=== PATIENT | female | born 1945 | race Caucasian/White ===

== ENCOUNTER 2023-01-04 19:17 | Inpatient (IN) | payer MEDICAID ==
[~2023-01-04] VITALS: Ht 157.5 cm; Wt 55.0 kg
[2023-01-04 19:37] LABS: BASOPHILS % (AUTO) 0.6 % (0-1); EOSINOPHILS # (AUTO) 0.5 X10'3 (0-0.9); HEMATOCRIT 36.2 % (35.0-45.0); HEMOGLOBIN 12.3 g/dl (12.0-16.0); LYMPHOCYTES # (AUTO) 2.6 X10'3 (1.1-4.8); LYMPHOCYTES % (AUTO) 47.4 % (21-51); MEAN CORPUSCULAR VOLUME 94.1 FL (78-98); MEAN PLATELET VOLUME 7.9 FL (7.4-10.4); MONOCYTES # (AUTO) 0.5 X10'3 (0-0.9); MONOCYTES % (AUTO) 8.7 % (2-12); NEUTROPHILS # (AUTO) 1.9 X10'3 (1.8-7.7); NEUTROPHILS % (AUTO) 34.3 % (42-75); PLATELET COUNT 221 X10'3 (140-440); RED BLOOD COUNT 3.85 X10'6 (4.20-5.60); RED CELL DISTRIBUTION WIDTH 13.9 % (11.5-14.5); WHITE BLOOD COUNT 5.5 X10'3 (4.5-11.0)
[2023-01-04 19:42] LABS: ALANINE AMINOTRANSFERASE 11 U/L (12-78); ALBUMIN 3.4 G/DL (3.4-5.0); ALBUMIN/GLOBULIN RATIO 0.9 (1.1-1.5); ALKALINE PHOSPHATASE 61 IU/L (46-116); ANION GAP 10 (8-16); ASPARTATE AMINO TRANSFERASE 17 U/L (10-37); BILIRUBIN,TOTAL 0.3 MG/DL (0.1-1.0); BLOOD UREA NITROGEN 10 MG/DL (7-18); BUN/CREATININE RATIO 12.8 (10.0-20.0); CALCIUM 8.7 MG/DL (8.5-10.1); CHLORIDE 103 MMOL/L (99-107); CREATININE 0.78 MG/DL (0.40-0.90); GLUCOSE 134 MG/DL (70-104); POTASSIUM 3.6 MMOL/L (3.5-5.1); SODIUM 137 MMOL/L (135-145); TOTAL CARBON DIOXIDE 24.2 MMOL/L (24-32); TOTAL PROTEIN 7.3 G/DL (6.4-8.2); eGFR 71 ML/MIN
[2023-01-04 22:05] LABS: CLARITY,URINE CLEAR (Clear); COLOR,URINE YELLOW (Yellow); GLUCOSE, URINE NEGATIVE (Neg); KETONES,URINE NEGATIVE (Neg); LEUKOCYTE ESTERASE ,URINE NEGATIVE (Neg); NITRITES, URINE NEGATIVE (Neg); OCCULT BLOOD,URINE MODERATE (Neg); PROTEIN,URINE NEGATIVE (Neg); UROBILINOGEN,URINE 0.2 E.U/dL (0.2-1.0)
[2023-01-04 22:14] LABS: BACTERIA,URINE NONE SEEN /HPF (Neg); SQUAMOUS EPITHELIAL CELL,UR FEW /LPF (FEW); UA COLLECTION TYPE CLN CATCH MIDSTREAM; WBC,URINE 0-4 /HPF (0-4)
--- NOTE | 2023-01-04 22:37 | NUR ---
Dr. Valdes called regarding this pt he is going to put in orders. If Dr. Bull needs to reach him his phone # is [phone]
[2023-01-05] MEDS ORDERED: magnesium hydroxide 30ml (MOM) UD suspension PO PRN (00:10)
[2023-01-05] MEDS ORDERED: ondansetron 4mg rapidly disintigrating tab PO PRN (00:10)
[2023-01-05] MEDS ORDERED: HYDROcodone/acetaminophen 5mg/325mg tablet PO PRN (00:10)
[2023-01-05] MEDS ORDERED: diphenhydrAMINE 25mg capsule PO PRN (00:10)
[2023-01-05] MEDS ORDERED: bisacodyl 10mg suppository rectal RC PRN (00:10)
[2023-01-05] MEDS ORDERED: ondansetron/PF 4mg/2ml inj IV PRN (00:10)
[2023-01-05] MEDS ORDERED: diphenhydrAMINE 50 mg/ml inj IV PRN (00:10)
[2023-01-05] MEDS ORDERED: acetaminophen 325mg tablet PO PRN ×2 (00:10)
[2023-01-05] MEDS ORDERED: mag hydrox/Alum hydrox/simeth 30ml oral suspension PO PRN (00:10)
[2023-01-05] MEDS ORDERED: acetaminophen 650mg rectal suppository RC PRN (00:10)
[2023-01-05] MEDS ORDERED: morphine 2 MG/ML inj. syringe IV PRN (00:10)
[2023-01-05] MEDS: dextrose 5%-1/2 normal saline 1,000 ML IV SCH ×4 (00:44→22:55)
[2023-01-05 01:05] LABS: HEMOGLOBIN A1C 5.8 % (4.5-6.2)
[2023-01-05 01:19] LABS: CREATINE KINASE 55 U/L (26-192); PHOSPHORUS 4.1 MG/DL (2.3-4.5)
[2023-01-05 02:59] LABS: APTT 26 SECONDS (22-32); D-DIMER 1.45 MG/L FEU (0-0.50)
[2023-01-05 06:00] VITALS: BP 125/59
[2023-01-05] MEDS: docusate sod 100mg capsule PO SCH ×2 (07:30→20:47)
[2023-01-05] MEDS: meclizine 12.5mg tablet PO SCH ×3 (07:30→20:47)
[2023-01-05] MEDS: pantoprazole 40mg Tablet.DR PO SCH (07:30)
[2023-01-05] MEDS: aspirin 81mg, enteric-coated 1 TAB TABLET.DR PO SCH (07:30)
[2023-01-05] MEDS: heparin, porcine 5000 units/ml vial SQ SCH ×2 (07:31→20:48)
[2023-01-05 10:00] VITALS: BP 115/62
--- NOTE | 2023-01-05 10:33 | NUR ---
Patient in room ORTHO 4012. I have received report from NORIS Saxena and had the opportunity to ask questions and assume patient care.
[2023-01-05] MEDS ORDERED: FLU VACC QS2022-23(6MOS UP)/PF 60 MCG/0.5 ML SYRINGE IMVAC ONE (11:00)
[2023-01-05] MEDS ORDERED: pneumococcal 23-VAL P-sac vacc 25 mcg/0.5ml vial IMVAC ONE (11:00)
[2023-01-05] MEDS ORDERED: SACU1TAB7 PO (13:45)
[2023-01-05] MEDS ORDERED: BISO5TAB PO (13:45)
[2023-01-05] MEDS ORDERED: EPLE25TA4 PO (13:45)
[2023-01-05 14:00] VITALS: BP 91/57
--- NOTE | 2023-01-05 15:20 | NUR ---
Malnutrition Consult: Pt admit DX dizziness, acute vertigo w /rule out CVA, and hematuria per EMR. 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 Family does report pt is lacto-vegetarian dietary notified. RD encouraged pt/family to make further food preferences known and told them they may bring in food from home to meet pt cultural preferences as needed. Pt appears WD/WN during RD visit as well as per ER note; at this time lacks minimum malnutrition criteria. Addendum: 01/05/23 at [address] Amended: Links added.
[2023-01-05 18:00] VITALS: BP 96/55
--- NOTE | 2023-01-05 18:00 | NUR ---
Patient in room ORTHO 4012. I have received report from Kayla HAMM and had the opportunity to ask questions and assume patient care.
--- NOTE | 2023-01-05 18:40 | NUR ---
Problems reprioritized. Patient report given, questions answered & plan of care reviewed with NORIS Marina.
[2023-01-05] MEDS ORDERED: temazepam 15mg capsule PO PRN (21:00)
[2023-01-05 22:00] VITALS: BP 104/55
--- NOTE | 2023-01-06 02:00 | NUR ---
Pts blood pressure was taken at 0200 with an auto cuff result was 89/49. Pts bp was reassessed manually with a result of 108/66. Will continue to monitor blood pressure
--- NOTE | 2023-01-06 03:34 | NUR ---
Pt was assessed during shift change, granddaughter is at bedside and answering questions due to a language barrier. When IV was assessed it was found to have infiltrated. The iv was removed and replaced in the right forearm with a 22g that flushed well and is infusing. Pt has had a low bp with the latest bp being 108/66. The provider was contacted and is continuing telemetry. Pt was administered restoril for insomnia and is now resting comfortably
--- NOTE | 2023-01-06 05:36 | NUR ---
Problems reprioritized. Patient report given, questions answered & plan of care reviewed with Kayla HAMM.
[2023-01-06 06:00] VITALS: BP 110/86
[2023-01-06 06:48] LABS: BASOPHILS # (AUTO) 0.1 X10'3 (0-0.2); BASOPHILS % (AUTO) 1.1 % (0-1); EOSINOPHILS # (AUTO) 0.5 X10'3 (0-0.9); EOSINOPHILS % (AUTO) 10.7 % (0-6); HEMATOCRIT 33.4 % (35.0-45.0); HEMOGLOBIN 11.1 g/dl (12.0-16.0); LYMPHOCYTES # (AUTO) 2.1 X10'3 (1.1-4.8); LYMPHOCYTES % (AUTO) 42.9 % (21-51); MEAN CORPUSCULAR HEMOGLOBIN 31.6 PG (27.0-31.0); MEAN CORPUSCULAR HGB CONC 33.3 g/dL (33.0-36.5); MEAN PLATELET VOLUME 8.5 FL (7.4-10.4); MONOCYTES # (AUTO) 0.4 X10'3 (0-0.9); MONOCYTES % (AUTO) 8.7 % (2-12); NEUTROPHILS # (AUTO) 1.8 X10'3 (1.8-7.7); NEUTROPHILS % (AUTO) 36.6 % (42-75); PLATELET COUNT 205 X10'3 (140-440); RED BLOOD COUNT 3.52 X10'6 (4.20-5.60); RED CELL DISTRIBUTION WIDTH 14.1 % (11.5-14.5); WHITE BLOOD COUNT 4.8 X10'3 (4.5-11.0)
--- NOTE | 2023-01-06 07:07 | NUR ---
Patient in room ORTHO 4012. I have received report from NORIS Marina and had the opportunity to ask questions and assume patient care.
[2023-01-06 07:10] LABS: ALANINE AMINOTRANSFERASE 11 U/L (12-78); ALBUMIN 2.7 G/DL (3.4-5.0); ALBUMIN/GLOBULIN RATIO 0.8 (1.1-1.5); ALKALINE PHOSPHATASE 49 IU/L (46-116); ANION GAP 6 (8-16); ASPARTATE AMINO TRANSFERASE 20 U/L (10-37); BILIRUBIN,TOTAL 0.4 MG/DL (0.1-1.0); BLOOD UREA NITROGEN 4 MG/DL (7-18); BUN/CREATININE RATIO 5.7 (10.0-20.0); CHLORIDE 107 MMOL/L (99-107); CHOLESTEROL 161 MG/DL (0-200); GLUCOSE 103 MG/DL (70-104); HDL CHOLESTEROL 54 MG/DL (35-60); LDL CHOLESTEROL 94 MG/DL (50-100); POTASSIUM 3.6 MMOL/L (3.5-5.1); SODIUM 140 MMOL/L (135-145); TOTAL CARBON DIOXIDE 26.7 MMOL/L (24-32); TOTAL PROTEIN 6.1 G/DL (6.4-8.2); TRIGLYCERIDES 57 MG/DL (20-135); eGFR 81 ML/MIN
[2023-01-06] MEDS ORDERED: atenolol 25mg tablet PO SCH (08:00)
[2023-01-06] MEDS ORDERED: sacubitril/valsartan 49mg-51mg tablet PO SCH (08:00)
[2023-01-06] MEDS: aspirin 81mg, enteric-coated 1 TAB TABLET.DR PO SCH (08:11)
[2023-01-06] MEDS: docusate sod 100mg capsule PO SCH (08:11)
[2023-01-06] MEDS: pantoprazole 40mg Tablet.DR PO SCH (08:11)
[2023-01-06] MEDS: meclizine 12.5mg tablet PO SCH (08:12)
[2023-01-06] MEDS: heparin, porcine 5000 units/ml vial SQ SCH (08:13)
--- NOTE | 2023-01-06 08:27 | NUR ---
PAGER ID: [phone] MESSAGE: Kayla [phone] RE: Lizy Blancasvevay room 4012A - son (Franky) would like to talk to you. Thank you
[2023-01-06 10:00] VITALS: BP 86/57
[2023-01-06] MEDS ORDERED: ATOR20TA PO ×2 (11:08→15:00)
[2023-01-06] MEDS ORDERED: MECL-226 PO ×2 (11:08→15:00)
[2023-01-06] MEDS ORDERED: ASPI-1071 PO (11:08)
[2023-01-06 13:13] LABS: HBSAG SCREEN Negative (Negative); HEPATITIS C VIRUS ANTIBODY Non Reactive (Non Reactive)
--- NOTE | 2023-01-06 13:22 | NUR ---
PAGER ID: [phone] MESSAGE: Kayla [phone] RE: Wai Medel - Patient's pharmacy [facility] on [facility] only accepts prescriptions transmitted electronically
--- NOTE | 2023-01-06 13:28 | NUR ---
Patient was discharged at 1240 with instructions, verbalizing understanding of instructions in wheelchair accompanied by nursing staff and family. All lines and tubes including PIV with cannula intact and tele monitor have been removed. Education has been provided at bedside and all questions have been answered. Attempted to call in her prescriptions to the preferred pharmacy but they refused to accept prescriptions called in they will only accept prescriptions transmitted electronically. Notified Dr. Tinoco about this. Patient is stable and appropriate for discharge.
--- NOTE | 2023-01-06 14:57 | NUR ---
PAGER ID: [phone] MESSAGE: Kayla [phone] RE: Wai Medel room 4012A - can you send her 3 prescriptions electronically to [facility] on [facility] please. It's the only way they accept prescriptions.
[2023-01-06] MEDS ORDERED: ASPI81TA52 PO (15:00)
== END 2023-01-06 12:40 | disposition home or self-care (01) | DRG 47 ==
LOC: ER 19:18 → ED HOLD 01-05 00:10 → ORTHO 4S 01-05 05:40
PROVIDERS: ADMIT Family Medicine; ATTEND Family Medicine
DX: G45.9 Transient cerebral ischemic attack, unspecified (principal); I10 Essential (primary) hypertension; R55 Syncope and collapse; R31.9 Hematuria, unspecified; R42 Dizziness and giddiness; Z28.21 Immunization not carried out because of patient refusal
CPT/HCPCS: 36415; 70450; 70551; 71045; 80053; 80061; 81001; 82550; 83036; 83735; 83880; 84100; 84443; 84484; 85025; 85379; 85610; 85730; 86706; 86803; 87081; 87340; 87522; 90686; 90732; 93005; 93306; 93880; 97116; 97161; 97530; 99285; G0378; J1644; J7070; J8597

== ENCOUNTER → 2023-09-18 | Emergency (ER) | payer MEDICAID ==
[~2023-09-18] VITALS: Ht 149.9 cm; Wt 56.4 kg
[~2023-09-18] MED LIST: ATOR20TA PO; BISO5TAB PO; EPLE25TA4 PO; MECL-226 PO; MECL-302 PO; SACU1TAB7 PO; dexamethasone sod phosphate 10mg/ml inj PO STA; meclizine 12.5mg tablet PO ONE
[2023-09-18 09:28] VITALS: BP 131/60; PULSE 71; TEMP 97.6; O2SAT 99
[2023-09-18 09:46] LABS: BASOPHILS % (AUTO) 0.9 % (0-1); EOSINOPHILS # (AUTO) 0.5 X10'3 (0-0.9); EOSINOPHILS % (AUTO) 9.7 % (0-6); HEMATOCRIT 36.4 % (35.0-45.0); HEMOGLOBIN 12.2 g/dl (12.0-16.0); LYMPHOCYTES # (AUTO) 2.4 X10'3 (1.1-4.8); LYMPHOCYTES % (AUTO) 46.7 % (21-51); MEAN CORPUSCULAR HEMOGLOBIN 31.1 PG (27.0-31.0); MEAN CORPUSCULAR HGB CONC 33.5 g/dL (33.0-36.5); MEAN CORPUSCULAR VOLUME 92.7 FL (78-98); MEAN PLATELET VOLUME 8.2 FL (7.4-10.4); MONOCYTES # (AUTO) 0.3 X10'3 (0-0.9); MONOCYTES % (AUTO) 5.9 % (2-12); NEUTROPHILS # (AUTO) 1.9 X10'3 (1.8-7.7); NEUTROPHILS % (AUTO) 36.8 % (42-75); PLATELET COUNT 212 X10'3 (140-440); RED BLOOD COUNT 3.93 X10'6 (4.20-5.60); RED CELL DISTRIBUTION WIDTH 13.5 % (11.5-14.5); WHITE BLOOD COUNT 5.2 X10'3 (4.5-11.0)
[2023-09-18 10:04] LABS: ALANINE AMINOTRANSFERASE 10 U/L (12-78); ALBUMIN 3.4 G/DL (3.4-5.0); ALBUMIN/GLOBULIN RATIO 0.9 (1.1-1.5); ALKALINE PHOSPHATASE 56 IU/L (46-116); ANION GAP 8 (8-16); ASPARTATE AMINO TRANSFERASE 21 U/L (10-37); BILIRUBIN,TOTAL 0.5 MG/DL (0.1-1.0); BLOOD UREA NITROGEN 13 MG/DL (7-18); BUN/CREATININE RATIO 16.3 (10.0-20.0); CALCIUM 8.7 MG/DL (8.5-10.1); CHLORIDE 103 MMOL/L (99-107); GLUCOSE 135 MG/DL (70-104); POTASSIUM 3.7 MMOL/L (3.5-5.1); SODIUM 136 MMOL/L (135-145); TOTAL CARBON DIOXIDE 24.7 MMOL/L (24-32); TOTAL PROTEIN 7.3 G/DL (6.4-8.2); eCRCL 40 ML/MIN; eGFR 69 ML/MIN
[2023-09-18 10:11] LABS: PRO BRAIN NATRIURETIC PEPTIDE 96 PG/ML (0-450)
[2023-09-18 11:10] VITALS: RESP 16
== END | disposition home or self-care (01) ==
LOC: ER 09:14
DX: R42 Dizziness and giddiness (principal); I10 Essential (primary) hypertension; Z79.899 Other long term (current) drug therapy
CPT/HCPCS: 36415; 70450; 71045; 80053; 83880; 84484; 85025; 93005; 99285; J1100; J8597